=== PATIENT | female | born 1980 | race American Indian/Alaskan Native ===

== ENCOUNTER 2020-08-25 11:47 | Emergency (ER) | payer SELFPAY ==
[2020-08-25] MEDS ORDERED: KETOROLAC 60 MG/2 ML INJ IM ONE (13:30)
[2020-08-25] MEDS ORDERED: dexAMETHasone 20 MG/5 ML VIAL IM ONE (13:30)
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
--- NOTE | 2020-08-25 14:36 | XRay Report ---
RIGHT HIP 2 VIEWS INDICATION / CLINICAL INFORMATION: Fall off bar stool. COMPARISON: None available. FINDINGS: No significant skeletal abnormality Signer Name: Vamsi Tam MD FACR Signed: 08/25/2020 2:32 PM Workstation Name: [email or web address]
--- NOTE | 2020-08-25 14:36 | XRay Report ---
LUMBAR SPINE 3 VIEWS INDICATION / CLINICAL INFORMATION: fall off bar stool. COMPARISON: None available. FINDINGS: No significant skeletal abnormality. Alignment is normal. Signer Name: Vamsi Tam MD FACR Signed: 08/25/2020 2:32 PM Workstation Name: [email or web address]
[2020-08-25 15:12] VITALS: BP 144/70
== END 2020-08-25 15:10 | disposition home or self-care (01) ==
LOC: ED 11:47
DX: S70.01XA Contusion of right hip, initial encounter (principal); Z79.899 Other long term (current) drug therapy; W51.XXXA Accidental striking against or bumped into by another person, initial encounter; Y93.89 Activity, other specified; Y92.89 Other specified places as the place of occurrence of the external cause; Y99.8 Other external cause status
CPT/HCPCS: 72100; 73502; 96372; 99283; J1100; J1885

== ENCOUNTER 2021-06-25 14:19 | Outpatient (CLI) | payer OTHER ==
--- NOTE | 2021-07-17 16:49 | Mammography Report ---
DIGITAL DIAGNOSTIC MAMMOGRAM WITH CAD CONVENTIONAL, 06/25/2021 CLINICAL INFORMATION / INDICATION: Patient presents for evaluation of bilateral breast pain near the axilla and bilateral areas of palpable concern. BREAST LUMP N63.0 TECHNIQUE: Digital bilateral mammographic imaging was performed. This examination was interpreted with the benefit of Computer-aided Detection analysis. COMPARISON: None available. Attempts to obtain outside imaging were unsuccessful. FINDINGS: Breast Density: There are scattered areas of fibroglandular density. No dominant mass, suspicious calcifications or architectural distortion in either breast. There is a nodular density with associated biopsy clip seen in the posterior upper outer quadrant of the right breast, and there are 2 small focal asymmetric densities with associated biopsy clips seen in the left breast. There is no suspicious mammographic abnormality to account for the areas of focal pain and palpable concern in either breast. IMPRESSION: 1. There is no mammographic abnormality to account for the areas of focal pain and palpable concern i n either breast, therefore targeted bilateral breast ultrasound is recommended for further evaluation . Follow up recommendation: Ultrasound BI-RADS Category 0: INCOMPLETE. Needs additional imaging evaluation and/or prior mammograms for marky lara. A "normal" or negative report should not discourage follow up or biopsy of a clinically significant f inding. A written summary of these findings will be mailed to the patient. The patient will be entered into a mammography reporting system which will generate a reminder letter for the patient's next appointmen t at the appropriate interval. According to the [employer], yearly mammograms are recommended starting at age 40 and continuing as long as a woman is in good health. Breast MRI is recommended for women with an roscoe roximately 20-25% or greater lifetime risk of breast cancer, including women with a strong family his tory of breast or ovarian cancer and women who have been treated for Hodgkin's disease. Signer Name: Dinah Hatch MD Signed: 07/17/2021 4:45 PM Workstation Name: [email or web address]
== END 2021-06-25 14:20 | disposition home or self-care (01) ==
LOC: SPVWC 14:19
DX: N63.0 Unspecified lump in unspecified breast (principal)
CPT/HCPCS: 77066; G0279

== ENCOUNTER 2021-08-25 08:07 | Outpatient (CLI) | payer OTHER ==
--- NOTE | 2021-08-25 09:10 | Ultrasound Report ---
ULTRASOUND BREAST BILATERAL LIMITED, 08/25/2021 CLINICAL INFORMATION / INDICATION: ABNORMAL MAMMOGRAM N63.0. Patient presents for evaluation of an ar ea of palpable concern in the upper outer quadrant of both breasts/both axilla. Patient previously arnold d focal pain in these areas as well which she states has subsequently resolved. TECHNIQUE: Targeted ultrasound evaluation was performed of the area of interest. COMPARISON: Prior mammogram 06/25/2021 FINDINGS: Right breast: Targeted ultrasound was performed of the area of concern in the upper outer quadrant of the right breast and right axilla. There is a benign-appearing oval circumscribed hypoechoic mass in the right breast 10:00 position located 10 cm the nipple measuring up to 6 x 3 x 6 mm. This appears to correspond with a prior benign biopsy site on mammogram, and is therefore considered benign. A mor phologically normal lymph node is seen in the right axilla. No suspicious sonographic abnormality christos ntified. Left breast: Targeted ultrasound was performed of the area of concern in the upper outer quadrant of the left breast and left axilla. There is a morphologically normal lymph node in the left axilla. No suspicious sonographic abnormality identified. IMPRESSION: 1. No suspicious sonographic abnormality to account for the area of concern in the upper outer quadra nt of both breasts and axilla, therefore clinical correlation is recommended. Follow up recommendation: Back to schedule. BI-RADS Category 2: BENIGN. A normal or "negative" report should not preclude biopsy or follow-up of a clinically suspicious find ing. Signer Name: Dinah Hatch MD Signed: 08/25/2021 9:06 AM Workstation Name: [email or web address]
== END 2021-08-25 08:08 | disposition home or self-care (01) ==
LOC: US 08:07
PROVIDERS: ATTEND Surgery Vascular Surgery
DX: N63.11 Unspecified lump in the right breast, upper outer quadrant (principal)